=== PATIENT | male | born 1940 | race Asian ===

== ENCOUNTER 2016-09-11 05:52 | Day surgery (SDC) | payer MEDICARE, OTHER ==
[~2016-09-11] VITALS: Ht 172.7 cm; Wt 60.0 kg
[2016-09-11] MEDS ORDERED: SODIUM CHLORIDE 0.9% 1,000 ML IV ONE ×2 (06:11→06:15)
[2016-09-11 07:12] LABS: GLUCOSE COMMENT 1 Doctor Notified; GLUCOSE,POINT OF CARE 99 MG/DL (70-110)
[2016-09-11] MEDS ORDERED: MIDAZOLAM HCL 2 MG/2 ML VIAL ONE (07:17)
[2016-09-11] MEDS ORDERED: FentaNYL CITRATE-PF 100 MCG/2 ML VIAL ONE (07:17)
[2016-09-11] MEDS ORDERED: METF500T4 PO (07:28)
[2016-09-11] MEDS ORDERED: ATOR20TA86 PO (07:28)
[2016-09-11] MEDS ORDERED: ALBU8.5H IH (07:28)
[2016-09-11] MEDS ORDERED: ALLO100T PO (07:28)
[2016-09-11] MEDS ORDERED: AMLO-512 PO (07:28)
[2016-09-11] MEDS ORDERED: LOSA100T29 PO (07:28)
[2016-09-11] MEDS ORDERED: FAMO20TA8 PO (07:28)
[2016-09-11] MEDS ORDERED: MONT10TA24 PO (07:28)
[2016-09-11] MEDS ORDERED: FLUT15.88 NASAL (07:28)
[2016-09-11] MEDS ORDERED: BUDE10.2 IH (07:28)
[2016-09-11] MEDS ORDERED: ALBU8HFA IH (07:28)
[2016-09-11] MEDS ORDERED: MethylPREDNISolone SOD SUCC 125 MG/2 ML VIAL IVP ONE (08:30)
[2016-09-11] MEDS ORDERED: MethylPREDNISolone SOD SUCC 125 MG/2 ML VIAL ONE (09:07)
[2016-09-11] MEDS ORDERED: BENZOCAINE 20% 50 MCG/SPRAY 57 GM TP ONE (12:51)
[2016-09-11] MEDS ORDERED: ALBUTEROL SULFATE 2.5 MG/0.5 ML NEB SOLUTION NEB ONE (12:51)
[2016-09-11] MEDS ORDERED: LIDOCAINE HCL 4% 50 ML SOLUTION TP ONE (12:51)
[2016-09-11] MEDS ORDERED: LIDOCAINE HCL 2% 30 ML JELLY TP ONE (12:51)
[2016-09-11] MEDS ORDERED: OXYGEN THERAPY IH SCH (20:00)
== END 2016-09-11 09:45 | disposition home or self-care (01) ==
LOC: SURGERY 05:52
PROVIDERS: ATTEND Internal Medicine Critical Care Medicine
DX: J38.4 Edema of larynx (principal); B37.0 Candidal stomatitis; I10 Essential (primary) hypertension; Z87.891 Personal history of nicotine dependence; E11.9 Type 2 diabetes mellitus without complications; M19.90 Unspecified osteoarthritis, unspecified site; J44.9 Chronic obstructive pulmonary disease, unspecified
CPT/HCPCS: 31623; 31624; 71010; 82962; 87015; 87070; 87101; 87205; 87220; J2250; J2930; J3010; J7030